=== PATIENT | female | born 1995 | race Caucasian/White ===

== ENCOUNTER 2016-10-26 17:21 | Outpatient (CLI) | payer MEDICAID ==
[~2016-10-26] VITALS: Ht 152.4 cm; Wt 66.2 kg
[~2016-10-26 17:21] MED LIST: FOLI0.4T2 PO; PREN1TAB62 PO
[2016-10-26] MEDS ORDERED: BUTORPHANOL 2 MG INJ IM STA (17:57)
[2016-10-26 18:03] VITALS: Ht 152.4 cm; Wt 66.2 kg
[2016-10-26] MEDS ORDERED: FERR325C PO (18:07)
--- NOTE | 2016-10-26 18:25 | RADRPT ---
PROCEDURE: Right Upper Quadrant Ultrasound. CLINICAL INDICATION: GALLSTONES TECHNIQUE: Multiple real-time images were acquired of the patient's right upper quadrant abdomen a nd retroperitoneum utilizing a high resolution transducer. COMPARISON: Gallbladder ultrasound from 09/25/2016 FINDINGS: The liver measures 18.4 cm, and demonstrates mildly increased echogenicity. The main portal vein is patent with proper directional flow. There is no intrahepatic biliary ductal dilatation. The extrahe patic common bile duct measures 7 mm. There is cholelithiasis. There is no gallbladder wall thickening or pericholecystic fluid. The visualized pancreas is unremarkable. The right kidney measures 10.1 x 4.2 x 4.7 cm and demonstrates normal echotexture. There is no right renal calculus or hydronephrosis. The visualized abdominal aorta and IVC are grossly unremarkable. IMPRESSION: Hepatomegaly with mild fatty infiltration. Cholelithiasis without evidence of acute cholecystitis. There is stable mild dilatation of the comm on bile duct to 7 mm. If there is clinical concern for biliary obstruction such as an elevated bili kirby level, a HIDA scan or MRCP can be obtained for further evaluation. RPTAT: EE Physician Tin Date Time Electronically viewed and signed by Physician Tin on 10/26/2016 18:25 /
--- NOTE | 2016-10-26 18:54 | RADRPT ---
PROCEDURE: US OB biophysical profile. CLINICAL INDICATION: evaluation, gallstones TECHNIQUE: Multiple sonographic images of the pelvis were obtained. The images were reviewed on a PACS workstation. COMPARISON: Obstetrical ultrasound from 09/25/2016 FINDINGS: There is a single viable intrauterine gestation. Cardiac activity is present with 128 beats per min big sandy. There is a vertex presentation. The placenta is anterior. There is no evidence of placental abruption. There is a normal amount of amniotic fluid with an MARTÍN = 14.5 cm. Biophysical profile: movement 2/2 tone 2/2. breathing 2/2 MARTÍN 2/2 Total 05/03 RPTAT: AA . IMPRESSION: Normal biophysical profile. Normal MARTÍN. Physician Tin Date Time Electronically viewed and signed by Physician Tin on 10/26/2016 18:53 /
--- NOTE | 2016-10-26 20:46 | QN ---
Documentation Comment 21 y/o G 2 P0 AOG 31+ weeks with h/o gallstones presents with epigastric pain. Afebrile VSS Abdomen soft NT Strip Reactive Abdominal U/S no sign of cholecystitis. Patient states her pain has resolved and has no further complaint. D/C home. ABIMAEL WHITTEN MD Oct 26, 2016 20:46
== END 2016-10-26 21:06 | disposition home or self-care (01) ==
LOC: OBT 17:21 → L-D 17:22 → OBT 17:35 → UNDOADMIN 17:35 → L-D 17:35 → OBT 19:35
PROVIDERS: ATTEND Obstetrics & Gynecology
DX: O26.893 Other specified pregnancy related conditions, third trimester (principal); R10.13 Epigastric pain; Z3A.31 31 weeks gestation of pregnancy
CPT/HCPCS: 76705; 76818; 96372; J0595; Z7500; G0463

== ENCOUNTER 2016-12-24 12:28 | Inpatient (IN) | payer MEDICAID ==
[~2016-12-24] VITALS: Ht 152.4 cm; Wt 73.8 kg
[~2016-12-24 12:28] MED LIST changes: +FERR325C PO
[2016-12-24 12:46] VITALS: BP 111/55; PULSE 92; RESP 18; Ht 152.4 cm; Wt 73.8 kg
--- NOTE | 2016-12-24 13:29 | RADRPT ---
PROCEDURE: US OB biophysical profile. CLINICAL INDICATION: 20-year-old female with leaking. TECHNIQUE: Multiple sonographic images of the pelvis were obtained. The images were reviewed on a PACS workstation. COMPARISON: OB sonogram 10/25. FINDINGS: Cardiac activity is present with 143 beats per minute. There is a cephalic presentation. The placenta is anterior grade III. Amniotic fluid index: 15.5 Biophysical profile: movement 2/2 tone 2/2. breathing 2/2 MARTÍN 2/2 Total 05/03 IMPRESSION: 1. Normal biophysical profile. . Physician Yanira Date Time Electronically viewed and signed by Physician Yanira on 12/24/2016 13:28 JOSE CARLOS/
[2016-12-24 14:20] VITALS: BP 114/71; PULSE 81; RESP 20
--- NOTE | 2016-12-24 14:21 | TRIAGE ---
OB Triage Datetime Report Generated by CPN: 12/24/2016 14:21 Datetime: 12/24/2016 13:00 Assessment Type: Admission Assessment Maternal Assessment Level of Consciousness: Fully Conscious DTR's/Clonus: DTRs 2+; No Clonus Headache: Denies Blurred Vision: No Respiratory Effort: Unlabored; Regular Rhythm; Equal Expansion Breath Sounds, Left: Clear and Equal Breath Sounds, Right: Clear and Equal Nausea/Vomiting: Denies RUQ Epigastric Pain: Denies Lower Extremities Edema: None Degree: None Upper Extremities Edema: None Degree: None Facial Edema: None Fall Risk Assessment History of Falling: (0) No Secondary Diagnosis: (0) No Ambulatory Aid: (0) Bedrest/Nurse Assist IV Therapy: (0) No Gait: (0) Normal/Bedrest/Immobile Mental Status: (0) Oriented to Own Ability Fall Score: 0 Fall Risk Score Definition: No Risk: No action required Labor Evaluation Frequency: 2-3 Monitor Mode: External Duration (sec)2399: 50-120 Quality: Mild Pattern: Normal: <= 5 Contractions in 10 Minutes Resting Tone Garvin: Relaxed Heart Rate FHR Baseline Rate: 140 Monitor Mode: External US Variability: Moderate 6-25 bpm Accelerations: 15X15 Decelerations: Variable Category: Category II Datetime: 12/24/2016 12:59 Vaginal Exam Dilatation (cms): 1.0 Effacement (%): 60 Station: -3 Exam By: Gera MOSES Datetime: 12/24/2016 12:51 Time of Arrival: 12/24/2016 12:25 EGA: 40.1 Arrived By: Wheelchair Arrived From: Emergency Dept Chief Complaint: LEAKING SINCE 0400 Movement: Present Contractions: Irregular Time Contractions Began: 12/24/2016 04:00 Rupture of Membranes: Unsure Vaginal Bleeding: None Vaginal Discharge: Denies Recent Sexual Intercouse: Yes Abdominal Trauma: Not Applicable Patient Complaints: Contractions; Other Time Provider Notified: 12/24/2016 12:30 Provider Notified: DR ROSENDO Initial Plan: NST, BPP WITH MARTÍN AND ROM+ Datetime: 10/26/2016 20:37 Stage of : OB Triage Labor Evaluation Frequency: 0 Monitor Mode: External Resting Tone Garvin: Relaxed Heart Rate FHR Baseline Rate: 125 FHR Baseline Changes: No Baseline Change Variability: Moderate 6-25 bpm Accelerations: 15X15 Decelerations: None Category: Category I Pain Presence: None/Denies Pain Type: N/A Datetime: 10/26/2016 20:00 Labor Evaluation Frequency: 0 Monitor Mode: External Resting Tone Garvin: Relaxed Heart Rate FHR Baseline Rate: 125 Monitor Mode: External US Variability: Moderate 6-25 bpm Accelerations: 15X15 Decelerations: None Category: Category I Pain Assessment Pain Scale: 3 Pain Presence: Constant Pain Type: Ache Datetime: 10/26/2016 19:23 Respiratory Effort: Unlabored; Regular Rhythm Datetime: 10/26/2016 18:52 Pain Assessment Pain Scale: 6 Pain Presence: Constant Pain Type: Sharp; Ache Pain Goal: 0 Datetime: 10/26/2016 18:08 Stage of : OB Triage Datetime: 10/26/2016 17:46 Pain Assessment Pain Scale: 9 Pain Presence: Constant Pain Type: Sharp; Ache Pain Assessment Comments: pt with frequent changes of position rt pain. Datetime: 10/26/2016 17:40 Stage of : OB Triage Datetime: 10/26/2016 17:39 Time of Arrival: 10/26/2016 17:20 EGA: 31.5 Arrived By: Wheelchair Arrived From: Home Chief Complaint: Acute pain from gallstones Movement: Present Contractions: Denies/Absent Rupture of Membranes: Denies Vaginal Discharge: Denies Recent Sexual Intercouse: Denies Abdominal Trauma: Not Applicable Patient Complaints: Other Additional Patient Complaints: Pt states she was diagnosed a month ago with gallstones. States the pain started 1 hour after eating, Time Provider Notified: 10/26/2016 17:40 Provider Notified: ROSENDO Initial Plan: vs, efm, bpp/martín, Gallbladder u/s, Stadol 2mg IM, laborist to evaluate for dc Datetime: 10/26/2016 17:28 Stage of : OB Triage Monitor Mode: External Monitor Mode: External US Datetime: 10/26/2016 17:22 Pain Assessment Pain Scale: 9 Pain Presence: Constant Pain Type: Sharp; Ache Pain Location: Other Pain Goal: 0 Pain Assessment Comments: RUQ pain rt gallstones Datetime: 09/25/2016 08:55 EGA: 27.2 Fall Score: 0 Fall Risk Score Definition: No Risk: No action required Datetime: 08/23/2016 23:00 Fall Score: 0 Fall Risk Score Definition: No Risk: No action required Datetime: 08/23/2016 22:59 EGA: 22.4
[2016-12-24] MEDS ORDERED: METHYLERGONOVINE 0.2 MG INJ IM PRN (14:30)
[2016-12-24] MEDS ORDERED: OXYTOCIN 30 UNITS/LR 500 ML IV SCH ×2 (14:30)
[2016-12-24] MEDS ORDERED: MISOPROSTOL 200 MCG TAB PR PRN (14:30)
[2016-12-24] MEDS ORDERED: CARBOPROST 250 MCG INJ IM PRN (14:30)
[2016-12-24] MEDS ORDERED: LACTATED RINGER'S 1,000 ML IV PRN (14:30)
[2016-12-24] MEDS ORDERED: IBUPROFEN 600 MG TAB PO PRN (14:30)
[2016-12-24] MEDS ORDERED: BUTORPHANOL 2 MG INJ IV PRN (14:30)
[2016-12-24] MEDS ORDERED: LIDOCAINE 1% (MPF) 30 ML INJ INJ PRN (14:30)
[2016-12-24] MEDS ORDERED: OXYTOCIN 30 UNITS/LR 500 ML IV PRN (14:30)
--- NOTE | 2016-12-24 14:53 | HP ---
Date/Time of Note Date/Time of Note DATE: 12/24/16 TIME: 14:36 OB - History Hx of Present Free Text/Dictation 24 years old female 2 para 1 EDC January 30, 2007 admitted on December 21, 2069 withthe blurry vision diagnosis of -induced hypertension elevated blood pressure severe headache but no gastric pain or blurry vision perinatology consult recommended delivery since patient has neurological symptoms of preeclampsia and not anticipating a timely delivery by induction this was discussed with the patient and the plan of section was agreed and patient is being prepared to undergo primary disease case manager rn Complaint: 34 weeks and 4 days complicated with severe PIH recommended deliv Estimated Due Date: January 30, 2017 : 2 Para: 1 Care: Limited Care Ultrasounds: Normal mid trimester US Obstetrical Complications: Pre-eclampsia Medical Complications: None Past Family/Social History * Past Medical, Surgical, Family and Obstetric Histories reviewed from chart. Rubella: immune RPR/VDRL: Negative GBS Status: Negative HBsAG: Negative OB Admission Exam Vital Signs Vital Signs Vital Signs Date Time Temp Pulse Resp B/P Pulse Ox O2 Delivery O2 Flow Rate FiO2 12/24/16 12:46 97.8 92 18 111/55 Room Air Physical Exam HEENT: WNL Heart: Rhythm Normal Lungs: Clear, Equal Extremities: Other ( 34 weeks sent for) Cervical Dilatation: None Effacement: 0% Station: Other (Breech presentation) Membranes: Intact Heart Rate: 130's Accelerations: Accelerations Present Varibility: Moderate Contractions on Admission: None OB Assessment/Plan Reason for admission: section, other (Severe -induced hypertension) Plan: Section Induction Method: other (Not a candidate for induction due to breech presentation) MICHELLE ROBBINS MD Dec 24, 2016 14:48
[2016-12-24] MEDS: LACTATED RINGER'S 1,000 ML IV SCH ×2 (15:08→23:06)
[2016-12-24] MEDS: OXYTOCIN 30 UNITS/LR 500 ML IV SCH (15:13)
[2016-12-24 15:22] LABS: ADD SCAN DIFF NO
[2016-12-24 15:26] LABS: BASOPHILS % 0.4 % (0.0-2.0); EOSINOPHILS # 0.1 10^3/ul (0.0-0.5); EOSINOPHILS % 0.6 % (0.0-7.0); HEMATOCRIT 34.7 % (37.0-47.0); LYMPHOCYTES # 2.3 10^3/ul (0.8-2.9); MEAN CORPUSCULAR HEMOGLOBIN 29.1 pg (29.0-33.0); MEAN CORPUSCULAR HGB CONC 34.6 g/dl (32.0-37.0); MEAN CORPUSCULAR VOLUME 84.2 fl (82.0-101.0); MONOCYTE # 0.7 10^3/ul (0.3-0.9); MONOCYTES % 6.8 % (0.0-11.0); NEUTROPHIL # 6.5 10^3/ul (1.6-7.5); NEUTROPHILS % 67.7 % (39.0-77.0); PLATELET COUNT 171 10^3/UL (140-415); RED BLOOD COUNT 4.12 10^6/ul (4.20-5.40); RED CELL DISTRIBUTION WIDTH 13.5 % (11.5-14.5); WHITE BLOOD COUNT 9.6 10^3/ul (4.8-10.8)
[2016-12-24] MEDS ORDERED: AMPICILLIN 2 GM/NS (PMX) 100 ML IVPB ONE (15:30)
[2016-12-24 15:56] LABS: INR 0.84; PROTIME 11.5 Sec (12.2-14.2); PT RATIO 0.9
[2016-12-24 15:57] LABS: PARTIAL THROMBOPLASTIN TIME 27.7 Sec (25.0-35.0)
[2016-12-24] MEDS: AMPICILLIN 1 GM/NS (PMX) 50 ML IVPB SCH ×2 (19:01→23:05)
[2016-12-25] MEDS: AMPICILLIN 1 GM/NS (PMX) 50 ML IVPB SCH ×5 (03:01→17:00)
[2016-12-25] MEDS: LACTATED RINGER'S 1,000 ML IV SCH ×2 (06:54→13:47)
[2016-12-25 11:03] LABS: BARBITURATES Negative (NEGATIVE)
[2016-12-25 11:07] LABS: BENZODIAZEPINES Negative (NEGATIVE); CANNABINOIDS Negative (NEGATIVE); COCAINE Negative (NEGATIVE); OPIATES Negative (NEGATIVE)
[2016-12-25] MEDS ORDERED: LACTATED RINGER'S 1,000 ML IV* SCH (16:49)
--- NOTE | 2016-12-25 16:49 | LDN ---
Date/Time of Note Date/Time of Note DATE: 12/25/16 TIME: 16:42 Delivery Summary 8 lbs. 12 oz./3955 g Placenta Delivered: Spontaneously Meconium: none Episiotomy: Yes (Medial episiotomy) Laceration repair: Medial episiotomy repaired with 2-0 and 3-0 Vicryl sutures Anesthesia type: Local Estimated blood loss: 200 Sponge & Needle done & correct: Yes All needle counts correct: Yes Any foreign bodies felt in the: No Problems: Infant Delivery Information Sex Infant Sex: female Apgars 1 Minute: 8 5 Minute: 9 Suctioning Nose & mouth suctioned at mino: Yes Umbilical Cord Umbilical cord with: 3 Vessels Cord presentations: no nuchal cord Cord Blood was obtained: Yes SLICK WAN Dec 25, 2016 16:49
[2016-12-25] MEDS ORDERED: BENZOCAINE 20% 56 ML SPRAY TOP PRN (17:00)
[2016-12-25] MEDS ORDERED: DIBUCAINE 1% 30 GM OINT PR PRN (17:00)
[2016-12-25] MEDS ORDERED: WITCH HAZEL/GLYCERIN PAD PR PRN (17:00)
[2016-12-25] MEDS ORDERED: CARBOPROST 250 MCG INJ IM PRN (17:00)
[2016-12-25] MEDS ORDERED: LANOLIN 7 GM TUBE TOP PRN (17:00)
[2016-12-25] MEDS ORDERED: MAGNESIUM HYDROXIDE 30ML CUP PO PRN (17:00)
[2016-12-25] MEDS ORDERED: OXYTOCIN 30 UNITS/LR 500 ML IV PRN (17:00)
[2016-12-25] MEDS ORDERED: ONDANSETRON 4 MG INJ IV PRN (17:00)
[2016-12-25] MEDS ORDERED: MISOPROSTOL 200 MCG TAB PR PRN (17:00)
[2016-12-25] MEDS ORDERED: METHYLERGONOVINE 0.2 MG INJ IM PRN (17:00)
[2016-12-25] MEDS: IBUPROFEN 600 MG TAB PO SCH ×2 (17:25→23:27)
[2016-12-25] MEDS: ACETAMINOPHEN/CODEINE #3 TAB PO PRN (17:48)
[2016-12-25 18:00] VITALS: BP 108/58; PULSE 84; RESP 18
[2016-12-25] MEDS: OXYTOCIN 30 UNITS/LR 500 ML IV SCH (18:28)
[2016-12-25 19:30] VITALS: BP 113/62; PULSE 80; RESP 20
[2016-12-25 22:50] VITALS: BP 111/75; PULSE 85; RESP 20
[2016-12-26 03:28] VITALS: BP 111/70; PULSE 68; RESP 20
[2016-12-26] MEDS: IBUPROFEN 600 MG TAB PO SCH ×4 (05:43→23:38)
[2016-12-26 07:30] LABS: ADD SCAN DIFF NO
[2016-12-26 07:39] LABS: BASOPHIL # 0.1 10^3/ul (0.0-0.1); BASOPHILS % 0.4 % (0.0-2.0); EOSINOPHILS % 0.2 % (0.0-7.0); HEMOGLOBIN 9.6 g/dl (12.0-16.0); LYMPHOCYTES # 2.5 10^3/ul (0.8-2.9); MEAN CORPUSCULAR HEMOGLOBIN 28.3 pg (29.0-33.0); MEAN CORPUSCULAR HGB CONC 33.1 g/dl (32.0-37.0); MEAN CORPUSCULAR VOLUME 85.5 fl (82.0-101.0); MEAN PLATELET VOLUME 12.9 fl (7.4-10.4); MONOCYTES % 6.8 % (0.0-11.0); NEUTROPHIL # 10.3 10^3/ul (1.6-7.5); NEUTROPHILS % 74.2 % (39.0-77.0); PLATELET COUNT 168 10^3/UL (140-415); RED BLOOD COUNT 3.39 10^6/ul (4.20-5.40); RED CELL DISTRIBUTION WIDTH 13.7 % (11.5-14.5); WHITE BLOOD COUNT 13.9 10^3/ul (4.8-10.8)
[2016-12-26 08:00] VITALS: BP 104/64; PULSE 90; RESP 16
[2016-12-26] MEDS ORDERED: INFLUENZA VIRUS VACCINE 0.5 ML (DISPENSING) IM* ONE (08:00)
[2016-12-26] MEDS: SENNA/DOCUSATE NA (8.6MG/50MG) TAB PO PRN ×2 (08:24→21:27)
--- NOTE | 2016-12-26 10:03 | PN ---
Date/Time of Note Date/Time of Note DATE: 12/26/16 TIME: 10:02 OB Subjective Subjective Subjective day 1 Afebrile vital signs stable abdomen soft uterus firm lochia moderate extremity normal. Laboratory Tests Test 12/26/16 06:55 White Blood Count 13.910^3/ul Red Blood Count 3.3910^6/ul Hemoglobin 9.6g/dl Hematocrit 29.0% Mean Corpuscular Volume 85.5fl Mean Corpuscular Hemoglobin 28.3pg Mean Corpuscular Hemoglobin Concent 33.1g/dl Red Cell Distribution Width 13.7% Platelet Count 69731^3/UL Mean Platelet Volume 12.9fl Neutrophils % 74.2% Lymphocytes % 18.0% Monocytes % 6.8% Eosinophils % 0.2% Basophils % 0.4% Nucleated Red Blood Cells % 0.0/100WBC Neutrophils # 10.310^3/ul Lymphocytes # 2.510^3/ul Monocytes # 1.010^3/ul Eosinophils # 0.010^3/ul Basophils # 0.110^3/ul Nucleated Red Blood Cells # 0.010^3/ul Current Medications Medications (Trade) Dose Ordered Sig/Sandee Route PRN Reason Start Time Stop Time Status Last Admin Dose Admin Lactated Ringer's (Lr) 1,000 ml @ 125 mls/hr Q8H IV 12/24/16 14:06 12/25/16 17:27 DC 12/25/16 13:47 Butorphanol Tartrate (Stadol) 2 mg Q2H PRN IV PAIN 12/24/16 14:30 Lidocaine 30 ml 30 ml ONCE PRN INJ EPISIOTOMY/TEARING 12/24/16 14:30 Oxytocin/Lactated Ringer's 500 ml @ 125 mls/hr ONCE -MAY REPEAT X1 IV 12/24/16 14:30 12/25/16 17:27 DC 12/25/16 16:16 Oxytocin/Lactated Ringer's 500 ml @ 125 mls/hr ONCE IV 12/24/16 14:30 12/25/16 17:28 DC Ibuprofen 600 mg 600 mg ONCE PRN PO Mild Pain (Pain Score 1-3) 12/24/16 14:30 12/25/16 16:31 Lactated Ringer's 1,000 ml @ 2,000 mls/hr Q30M PRN IV PRE-EPIDURAL BOLUS 12/24/16 14:30 12/25/16 17:28 DC Oxytocin/Lactated Ringer's 500 ml @ 0 mls/hr ONCE PRN IV For Hemorrhage Management 12/24/16 14:30 12/25/16 17:28 DC Methylergonovine Maleate (Methergine) 0.2 mg ONCE PRN IM VAGINAL BLEEDING 12/24/16 14:30 Carboprost Tromethamine (Hemabate) 250 mcg ONCE PRN IM VAGINAL BLEEDING 12/24/16 14:30 Misoprostol 1000 mcg 1,000 mcg ONCE PRN AR VAGINAL BLEEDING 12/24/16 14:30 Ampicillin 100 ml @ 100 mls/hr ONCE ONCE IVPB 12/24/16 15:30 12/24/16 16:29 DC 12/24/16 15:12 Ampicillin 50 ml @ 100 mls/hr Q4 IVPB 12/24/16 18:00 12/25/16 17:28 DC 12/25/16 15:05 Oxytocin/Lactated Ringer's 500 ml @ 0 mls/hr Q0M IV 12/24/16 15:30 12/25/16 18:28 DC 12/24/16 15:13 Lactated Ringer's (Lr) 1,000 ml @ 125 mls/hr Q8H IV* 12/25/16 16:49 12/25/16 17:28 DC Ibuprofen (Motrin) 600 mg Q6 PO 12/25/16 18:00 12/26/16 05:43 Ondansetron HCl (Zofran Inj) 4 mg Q6H PRN IV NAUSEA AND/OR VOMITING 12/25/16 17:00 Senna/Docusate Sodium (Senokot-S) 1 tab BID PRN PO CONSTIPATION 12/25/16 17:00 12/26/16 08:24 Magnesium Hydroxide (Milk Of Mag) 30 ml Q12H PRN PO CONSTIPATION 12/25/16 17:00 Witch Noa/ Glycerin (Tucks Pads) 1 pad BEDSIDE MEDICATION PRN AR HEMORRHOID/EPISIOTMY PAIN 12/25/16 17:00 Benzocaine (Dermoplast [place]) 1 spray BEDSIDE MEDICATION PRN TOP HEMORRHOID/EPISIOTMY PAIN 12/25/16 17:00 Dibucaine (Nupercainal) 1 applic BEDSIDE MEDICATION PRN AR HEMORRHOID/EPISIOTMY PAIN 12/25/16 17:00 Lanolin 1 applic 1 applic BEDSIDE MEDICATION PRN TOP BEDSIDE FOR AMIE TO NIPPLES 12/25/16 17:00 12/26/16 08:24 Oxytocin/Lactated Ringer's 500 ml @ 0 mls/hr ONCE PRN IV For Hemorrhage Management 12/25/16 17:00 Methylergonovine Maleate (Methergine) 0.2 mg ONCE PRN IM VAGINAL BLEEDING 12/25/16 17:00 Carboprost Tromethamine (Hemabate) 250 mcg ONCE PRN IM VAGINAL BLEEDING 12/25/16 17:00 Misoprostol (Cytotec) 1,000 mcg ONCE PRN AR VAGINAL BLEEDING 12/25/16 17:00 Acetaminophen/ Codeine Phosphate (Tylenol No.3) 2 tab ONCE PRN PO Moderate to Severe Pain (4-10) 12/25/16 18:00 12/25/16 17:48 Influenza Virus Vaccine (Fluzone) 0.5 ml ONCE ONCE IM* 12/27/16 09:00 12/27/16 09:01 Cancel Influenza Virus Vaccine (Fluzone) 0.5 ml ONCE ONCE IM* 12/26/16 08:00 12/26/16 08:01 DC 12/26/16 09:37 MICHELLE ROBBINS MD Dec 26, 2016 10:03
[2016-12-26 15:42] VITALS: BP 88/49; PULSE 63; RESP 16
[2016-12-26 20:15] VITALS: BP 111/78; PULSE 79; RESP 18
[2016-12-26] MEDS: ACETAMINOPHEN/CODEINE #3 TAB PO PRN (21:28)
[2016-12-27 04:15] VITALS: BP 105/74; PULSE 62; RESP 19
[2016-12-27] MEDS: IBUPROFEN 600 MG TAB PO SCH ×2 (05:35→11:22)
[2016-12-27 08:10] VITALS: BP 116/75; PULSE 70; RESP 16
[2016-12-27] MEDS: SENNA/DOCUSATE NA (8.6MG/50MG) TAB PO PRN (08:17)
[2016-12-27] MEDS ORDERED: INFLUENZA VIRUS VACCINE 0.5 ML (DISPENSING) IM* ONE (09:00)
--- NOTE | 2016-12-27 16:28 | DS ---
Date/Time of Note Date/Time of Note DATE: 12/27/16 TIME: 16:28 Discharge Summary Admission/Discharge Info Admit Date/Time Dec 24, 2016 at 14:22 Discharge Date/Time Final Diagnosis status post Patient Condition: Stable Hospital Course pt underwent of viable Home Meds Reported Medications Ferrous Sulfate (Iron) 325 Mg Capsule.er, 325 MG PO, CAP 10/26/16 Vit-Iron Fumarate-FA ( Vitamin Tablet) 1 Each Tablet, 1 TAB PO DAILY, TAB 08/23/16 Folic Acid* (Folic Acid*) 0.4 Mg Tablet, 0.4 MG PO DAILY, TAB 08/23/16 GAMALIEL KAUFFMAN MD Dec 27, 2016 16:28
[2016-12-27 16:55] VITALS: BP 115/80; PULSE 79; RESP 0
== END 2016-12-27 17:49 | disposition home or self-care (01) | DRG 775 ==
LOC: OBT 12:28 → L-D 12:28 → OBT 14:21 → L-D 14:22 → PP1 12-25 18:09
PROVIDERS: ADMIT Obstetrics & Gynecology; ATTEND Obstetrics & Gynecology
PROC: 10E0XZZ Delivery of Products of Conception, External Approach (ICD-10-PCS; principal; 2016-12-25)
PROC: 0W8NXZZ Division of Female Perineum, External Approach (ICD-10-PCS; 2016-12-25)
PROC: 3E00X4Z Introduction of Serum, Toxoid and Vaccine into Skin and Mucous Membranes, External Approach (ICD-10-PCS; 2016-12-26)
DX: O13.4 Gestational [pregnancy-induced] hypertension without significant proteinuria, complicating childbirth (principal); Z23 Encounter for immunization; Z3A.38 38 weeks gestation of pregnancy; Z37.0 Single live birth
CPT/HCPCS: 76818; 80307; 84112; 85025; 85610; 85730; 86592; 86900; 86901; 90686; G0463; J0290; J2590; J7120

== ENCOUNTER 2017-01-28 03:29 | Emergency (ER) | payer MEDICAID ==
[~2017-01-28] VITALS: Ht 152.4 cm; Wt 60.5 kg
[2017-01-28 03:35] VITALS: Ht 152.4 cm; Wt 60.5 kg
--- NOTE | 2017-01-28 04:29 | ERA ---
ER Documentation Chief Complaint Date/Time DATE: 01/28/17 TIME: 04:28 Chief Complaint SUDDEN ONSET SEVERE ABD PAIN ("GALLSTONES"), N/V SINCE 0100, +DIAPHORESIS HPI The patient is a 20-year-old female, presenting to the ER because of epigastric abdominal pain that began about 1 AM after eating [employer] food last night. She has similar symptom from gallbladder attack. She denies fever, chills, neck pain, chest pain, dyspnea. He vomited twice initially food then mucous. She denies diarrhea, constipation, dysuria, polyuria. He does not smoke nor drink Past medical history: Cholelithiasis Past surgical history: None ROS All systems reviewed and are negative except as per history of present illness. Medications Home Meds Active Scripts Ondansetron (Ondansetron Odt) 4 Mg Tab.rapdis, 4 MG PO Q6H Y for NAUSEA AND/OR VOMITING, #10 TAB Prov:MICHAELA LICONA MD 01/28/17 Hydrocodone/Acetaminophen (Craig 5-325 Tablet) 1 Each Tablet, 1 TAB PO Q6H Y for PAIN, #7 TAB Prov:MICHAELA LICONA MD 01/28/17 Allergies Allergies: Coded Allergies: No Known Allergy (Unverified , 10/26/16) Physical Exam Vitals Vital Signs Date Time Temp Pulse Resp B/P Pulse Ox O2 Delivery O2 Flow Rate FiO2 01/28/17 03:35 98.0 54 18 132/63 99 Physical Exam Const: No acute distress. Head: Atraumatic. Eyes: Normal Conjunctiva. ENT: Normal External Ears, Nose and Mouth. Neck: Full range of motion. No meningismus. Resp: Clear to auscultation bilaterally. Cardio: Regular rate and rhythm, no murmurs. Abd: Soft, non distended, normal bowel sounds, mild and RUQ epigastric tenderness, no right lower quadrant, CVA, rigidity, rebound tenderness Skin: No petechiae or rashes. Back: No midline or flank tenderness. Ext: No cyanosis, or edema. Neur: Awake and alert. No focal deficit Psych: Normal Mood and Affect. Result Diagram: 01/28/17 0427 01/28/17 0427 Results 24 hrs Laboratory Tests Test 01/28/17 04:27 White Blood Count 17.210^3/ul Red Blood Count 5.3710^6/ul Hemoglobin 14.8g/dl Hematocrit 45.5% Mean Corpuscular Volume 84.7fl Mean Corpuscular Hemoglobin 27.6pg Mean Corpuscular Hemoglobin Concent 32.5g/dl Red Cell Distribution Width 13.1% Platelet Count 29635^3/UL Mean Platelet Volume 12.1fl Neutrophils % 74.6% Lymphocytes % 19.4% Monocytes % 4.0% Eosinophils % 1.0% Basophils % 0.5% Nucleated Red Blood Cells % 0.0/100WBC Neutrophils # 12.810^3/ul Lymphocytes # 3.310^3/ul Monocytes # 0.710^3/ul Eosinophils # 0.210^3/ul Basophils # 0.110^3/ul Nucleated Red Blood Cells # 0.010^3/ul Sodium Level 144mmol/L Potassium Level 3.4mmol/L Chloride Level 104mmol/L Carbon Dioxide Level 25mmol/L Anion Gap 18 Blood Urea Nitrogen 16mg/dl Creatinine 0.67mg/dl Glucose Level 117mg/dl Calcium Level 9.7mg/dl Total Bilirubin 0.3mg/dl Direct Bilirubin 0.00mg/dl Indirect Bilirubin 0.3mg/dl Aspartate Amino Transf (AST/SGOT) 37IU/L Alanine Aminotransferase (ALT/SGPT) 29IU/L Alkaline Phosphatase 94IU/L Total Protein 8.5g/dl Albumin 4.9g/dl Globulin 3.60g/dl Albumin/Globulin Ratio 1.36 Lipase 138U/L Current Medications Medications (Trade) Dose Ordered Sig/Sandee Route PRN Reason Start Time Stop Time Status Last Admin Dose Admin Sodium Chloride (NS) 1,000 ml @ 1,000 mls/hr Q1H STAT IV 01/28/17 04:33 01/28/17 05:32 DC 01/28/17 04:47 Morphine Sulfate (morphine) 4 mg ONCE STAT IV 01/28/17 04:33 01/28/17 04:34 DC 01/28/17 04:47 Ondansetron HCl (Zofran Inj) 4 mg ONCE STAT IV 01/28/17 04:33 01/28/17 04:34 DC 01/28/17 04:47 Potassium Chloride (Klor-Con 20) 20 meq ONCE ONCE PO 01/28/17 05:51 01/28/17 05:52 DC Procedures/MDM MEDICAL MAKING DECISION: The patient is 31-year-old female, presenting with acute biliary colic, acute hypokalemia. She was treated 1 L normal saline for clinical dehydration, morphine 4 mg IV for pain, Zofran 4 mg IV for nausea, potassium chloride 20 mEq p.o. for low potassium with good response. The differential diagnoses considered include but are not limited to cholelithiasis, cholecystitis, cystitis, pancreatitis, hepatitis, gastritis, peptic ulcer disease, gastric ulcer, appendicitis, diverticulitis, cholangitis, choledocholithiasis, partial small bowel obstruction. Departure Diagnosis: Primary Impression: Biliary colic Additional Impression: Hypokalemia Comments The patient's blood pressure was elevated (>120/80) but appears stable without evidence of hypertension emergency or urgency. The patient was counseled about the risks of hypertension and urged to pursue outpatient monitoring and therapy within a week with their primary care physician. I am currently awaiting for the ultrasound of the gallbladder to rule out cholecystitis. If it is negative, she will be discharged with Craig and Kendell and advised to follow-up with her physician tomorrow for referral to see a general surgeon for elective cholecystectomy The on-duty ER MD Dr Weathers will follow up on the ultrasound MICHAELA LICONA MD January 28, 2017 04:29
[2017-01-28] MEDS ORDERED: morphine 4 MG/ML VIAL IV STA (04:33)
[2017-01-28] MEDS ORDERED: SOD CHLORIDE 0.9% 1,000 ML IV STA (04:33)
[2017-01-28] MEDS ORDERED: ONDANSETRON 4 MG INJ IV STA (04:33)
[2017-01-28 05:14] LABS: ADD SCAN DIFF NO
[2017-01-28 05:21] LABS: BASOPHIL # 0.1 10^3/ul (0.0-0.1); BASOPHILS % 0.5 % (0.0-2.0); EOSINOPHILS # 0.2 10^3/ul (0.0-0.5); HEMATOCRIT 45.5 % (37.0-47.0); HEMOGLOBIN 14.8 g/dl (12.0-16.0); LYMPHOCYTES # 3.3 10^3/ul (0.8-2.9); LYMPHOCYTES % 19.4 % (15.0-51.0); MEAN CORPUSCULAR HEMOGLOBIN 27.6 pg (29.0-33.0); MEAN CORPUSCULAR HGB CONC 32.5 g/dl (32.0-37.0); MEAN CORPUSCULAR VOLUME 84.7 fl (82.0-101.0); MEAN PLATELET VOLUME 12.1 fl (7.4-10.4); MONOCYTE # 0.7 10^3/ul (0.3-0.9); NEUTROPHIL # 12.8 10^3/ul (1.6-7.5); NEUTROPHILS % 74.6 % (39.0-77.0); PLATELET COUNT 239 10^3/UL (140-415); RED BLOOD COUNT 5.37 10^6/ul (4.20-5.40); RED CELL DISTRIBUTION WIDTH 13.1 % (11.5-14.5); WHITE BLOOD COUNT 17.2 10^3/ul (4.8-10.8)
[2017-01-28 05:39] LABS: ALBUMIN 4.9 g/dl (3.3-4.9)
[2017-01-28 05:40] LABS: POTASSIUM 3.4 mmol/L (3.5-5.1)
[2017-01-28 05:42] LABS: ALBUMIN/GLOBULIN RATIO 1.36; BILIRUBIN,INDIRECT 0.3 mg/dl (0-1.1); BILIRUBIN,TOTAL 0.3 mg/dl (0.2-1.3); CREATININE 0.67 mg/dl (0.44-1.00); TOTAL PROTEIN 8.5 g/dl (6.1-8.1)
[2017-01-28 05:43] LABS: CALCIUM 9.7 mg/dl (8.4-10.2)
[2017-01-28] MEDS ORDERED: POTASSIUM CHLORIDE (SR) 20 MEQ TAB PO ONE (05:51)
[2017-01-28] MEDS ORDERED: ONDA4TAB14 PO (05:57)
[2017-01-28] MEDS ORDERED: HYDR-906 PO (05:57)
--- NOTE | 2017-01-28 06:30 | RADRPT ---
PROCEDURE: US Abdomen (right upper quadrant). CLINICAL INDICATION: Abdominal pain. TECHNIQUE: Multiple real-time longitudinal and transverse images of the right upper quadrant of th e abdomen were acquired utilizing a curved array transducer. Images were reviewed on a high-resoluti on PACS workstation. COMPARISON: None FINDINGS: The liver is normal in size and demonstrates normal echogenicity. No focal intrahepatic mass is id entified. The gallbladder contains stones. The gallbladder wall is upper limits of normal in thick ness. No intra or extrahepatic biliary dilatation is seen. The common bile duct measures mm in max imal dimension. The portal and hepatic veins are patent demonstrating normal directional flow. The v isualized portions of the pancreas are unremarkable with obscuration of the tail of the pancreas. N o free fluid is identified. The right kidney measures 10.0 cm in length. There is normal echogenicity within the right kidney. There is no perinephric fluid collection. No hydronephrosis, mass, or calculus is seen. IMPRESSION: Cholelithiasis. The gallbladder wall is upper limits of normal in thickness. No pericholecystic fr ee fluid is seen. RPTAT: HH .Lakesha Sanchez MD, MD Date Time Electronically viewed and signed by .Lakesha Sanchez MD, on 01/28/2017 06:29 .G/
[2017-01-28 07:33] VITALS: BP 104/53; PULSE 53; RESP 18; TEMP 98
== END 2017-01-28 07:34 | disposition home or self-care (01) ==
LOC: E/R 03:29
DX: K80.50 Calculus of bile duct without cholangitis or cholecystitis without obstruction (principal); R11.2 Nausea with vomiting, unspecified; E87.6 Hypokalemia
CPT/HCPCS: 76705; 80053; 83690; 85025; J2270; J2405; J7030; Z7610; 36415; 96374; 96375

== ENCOUNTER 2018-06-14 19:18 | Outpatient (CLI) | END 2018-06-14 23:00 | disposition home or self-care (01) ==

== ENCOUNTER 2018-08-23 10:10 | Outpatient (CLI) | END 2018-08-23 14:00 | disposition home or self-care (01) ==

== ENCOUNTER 2018-08-30 11:30 | Inpatient (IN) | END 2018-09-03 14:30 | disposition home or self-care (01) | DRG 807 ==